=== PATIENT | female | born 1960 | race Caucasian/White ===

== ENCOUNTER → 2023-08-15 13:21 | Outpatient (REF) | payer OTHER, SELFPAY | LOC: WDC 13:21 | PROVIDERS: ATTENDING PHYSICIAN Obstetrics & Gynecology; FAMILY PHYSICIAN Family Medicine | DX: R92.2 Inconclusive mammogram (principal) | CPT/HCPCS: 76641 ==

== ENCOUNTER → 2024-02-04 07:25 | Outpatient (REF) | payer OTHER, SELFPAY | LOC: HWWDC 07:25 | PROVIDERS: ATTENDING PHYSICIAN Obstetrics & Gynecology; FAMILY PHYSICIAN Family Medicine | DX: Z12.31 Encounter for screening mammogram for malignant neoplasm of breast (principal) | CPT/HCPCS: 77063; 77067 ==

== ENCOUNTER 2024-02-10 07:35 | Emergency (ER) | payer OTHER, SELFPAY ==
[2024-02-10 07:41] VITALS: BP 139/99
--- NOTE | 2024-02-10 08:33 | ED.GENMED ---
History of Present Illness
General
Chief Complaint: Abdominal Symptoms
Source: patient
Exam Limitations: none
Time Seen by Provider: 02/10/24 08:09
History of Present Illness
History of Present Illness:
63-year-old female with history of GERD and hypothyroidism presents complaining of intermittent mid abdominal pain described as a dull aching nature for 2 to 3 days. No associated vomiting or fever. She is been moving her bowels without blood in
the stool. Pain is not made worse with breathing or eating. No prior abdominal surgical history. She thought she may have been constipated and took Dulcolax and is since moved her bowels but notes no significant improvement.
Past History
Past History
ED Past Medical History: GERD and Other (Ulcers)
ED Past Surgical History: None
Social History
Tobacco: Non-smoker
Alcohol: Occasional
Personal:
Living: with family
Phy Exam
Physical Exam
Physical Exam:
General: Well-appearing female no acute respiratory distress
HEENT: Normocephalic atraumatic
Heart: Regular rate and rhythm no murmurs lungs: Clear no wheeze
Abdomen is soft tender to the mid abdomen no guarding rebound normal bowel sounds nondistended no costovertebral angle tenderness
Extremities: No cyanosis
Skin: Warm no rash
Course
Orders/Labs/Results
Orders:
Orders
02/10/24 08:33
CT Abd/pelvis W Iv Cont Urgent
Comment:
Reason For Exam: mid abdominal pain
02/10/24 09:00
Complete Blood Count/With Diff Urgent
Comprehensive Metabolic Panel Urgent
Lipase Urgent
Urinalysis Reflex To Culture Urgent
Date Specimen was Collected: 02/10/24
Time Specimen was Collected: 08:53
02/10/24 09:00
02/10/24 09:00
Vital Signs
Initial and Last Documented VS:
Initial Vital Signs
Temp Pulse Resp BP Pulse Ox
98.3 F 99 16 139/99 98
02/10/24 07:41 02/10/24 07:41 02/10/24 07:41 02/10/24 07:41 02/10/24 07:41
Last Documented Vital Signs
Temp Pulse Resp BP Pulse Ox
98.3 F 83 26 130/83 98
02/10/24 07:41 02/10/24 10:30 02/10/24 10:30 02/10/24 10:00 02/10/24 07:41
MDM/Problems Addressed
Differential Diagnosis Includes:
Abdominal pain. Question GERD versus gastritis versus constipation versus diverticulitis. Pain occasionally radiates to the right shoulder. Pain is intermittent. Consider biliary colic however exam not consistent. Will check labs and urine. CT
with IV contrast pending
*Critical Care Note
Total Time (30-74mins, 75-104mins- exclusive of procedures): Not Applicable
Update Note
Update Note:
CT negative labs reviewed without significant finding urinalysis negative. Patient reexamined nontoxic states her pain has changed location. There does seem to be some mild to moderate amount of stool within the rectum. Suspect possible
constipation causing issues. Recommend stool softeners and close follow-up with GI. Stable for discharge
ED Attending Note
-
Portions of this chart may have been created with voice recognition software.� Occasional wrong word or��sound alike� substitutions may have occurred due to the inherent limitations of voice recognition software.
Discharge Plan
Departure
Patient Disposition: Home (Routine Discharge)
Date of Disposition: 02/10/24
Time of Disposition: 11:17
Patient with high blood pressure during this ER visit?: No
Discharge Problem:
Abdominal pain
Instructions: Abdominal Pain
Prescriptions:
No Action
multivitamin [Daily Multiple] 1 EACH tablet
1 ea PO DAILY AT 0700
levothyroxine 50 MCG tablet
50 mcg PO DAILY
docosahexaenoic acid-epa 1 CAP capsule
1 cap PO DAILY AT 0700
cyclobenzaprine 10 MG tablet
10 mg PO TIDPRN PRN (Reason: muscle pain ) Qty: 12 0RF
Referrals:
Valentina Sarkar, [Family Provider] -
Activity Restrictions/Additional Instructions:
Consider continuing use of stool softeners. Continue your antacid. Return for worsening symptoms otherwise follow-up with your GI team
Interventions
Interventions:
*Risk Screen - Suicide Last Done: 02/10/24 07:41
*General Assessment Last Done: 02/10/24 08:46
*Neglect/Abuse Screening Last Done: 02/10/24 07:41
ED- Fall Risk Assessment Last Done: 02/10/24 08:46
*ED COVID-19 Vaccine History Last Done: 02/10/24 08:46
SY-Hazrgc-Ptdfbhzyro Assessment Last Done: 02/10/24 08:46
Discharge Date and Time
Print Language: ARABIC
[2024-02-10 08:46] VITALS: BMI 30.6
[2024-02-10 08:51] VITALS: BP 133/78
[2024-02-10 09:00] VITALS: BP 137/84
[2024-02-10 09:24] LABS: % Eosinophils 0.9 % (0-6); % Immature Granulocytes 0.2 % (0-0.5); % Lymphocytes 40.1 % (20.5-51.1); % Monocytes 5.9 % (1.7-9.3); % Neutrophils 51.9 % (42.2-75.2); Absolute Basophils 0.1 10^3/uL (0-0.2); Absolute Eosinophils 0.1 10^3/uL (0-0.7); Absolute Lymphocytes 2.3 10^3/uL (1.2-3.4); Absolute Monocytes 0.3 10^3/uL (0.1-0.6); Hematocrit 43.6 % (37.0-47.0); Hemoglobin 14.6 g/dL (12.0-16.0); Mean Corp Hgb Conc. 33.5 g/dL (33.0-37.0); Mean Corpuscular Hgb 29.3 pg (27.0-31.0); Mean Corpuscular Volume 87.6 fL (81.0-99.0); Mean Platelet Volume 9.8 fL (7.4-10.4); Nucleated Red Blood Cells % 0 %; Platelet Count 316 10^3/uL (130-400); Red Blood Cell Count 4.98 10^6/uL (4.20-5.40); Red Cell Dist. Width 12.5 % (11.5-14.5); White Blood Cell Count 5.8 10^3/uL (4.8-10.8)
[2024-02-10 09:39] LABS: ALT (SGPT) 25 U/L (0-35); AST (SGOT) 30 U/L (14-36); Albumin 4.9 g/dl (3.5-5.0); Alkaline Phosphatase 71 U/L (38-126); Blood Urea Nitrogen 13 mg/dl (7-17); Carbon Dioxide 27 mmol/L (22-30); Chloride 105 mmol/L (98-107); Estimated Creatinine Clearance 70 ml/min; Glucose 96 mg/dl (70-99); Lipase 77 U/L (23-300); Potassium 4.5 mmol/L (3.5-5.1); Sodium 141 mmol/L (135-145); Total Bilirubin 0.4 mg/dl (0.2-1.3); Total Protein 7.8 g/dl (6.3-8.2); eGFR > 60.00
[2024-02-10 10:00] VITALS: BP 130/83
[2024-02-10 10:10] LABS: Urine Albumin Negative (Neg - Trace); Urine Bilirubin Negative (Negative); Urine Character Clear (Clear); Urine Color Yellow; Urine Glucose Negative (Negative); Urine Ketone Negative (Negative); Urine Leukocyte Negative (Negative); Urine Nitrite Negative (Negative); Urine Occult Blood Negative (Negative); Urine Urobilinogen Negative (Neg - 1+)
--- NOTE | 2024-02-10 11:53 | EDRN ---
Reviewed discharge instructions with patient. Verbalized understanding.
[2024-02-10 11:54] VITALS: BP 110/76
== END 2024-02-10 11:55 | disposition home or self-care (01) ==
LOC: EMR 07:35
PROVIDERS: Physician Assistant; EMERGENCY PHYSICIAN Emergency Medicine; FAMILY PHYSICIAN Family Medicine
DX: R10.9 Unspecified abdominal pain (principal); E03.9 Hypothyroidism, unspecified; K21.9 Gastro-esophageal reflux disease without esophagitis
CPT/HCPCS: 99284; 74177; 80053; 81003; 83690; 85025; Q9967

== ENCOUNTER 2024-10-23 06:32 | Day surgery (SDC) | payer MEDICARE, OTHER, SELFPAY | END 2024-10-23 14:28 | disposition home or self-care (01) | LOC: GI 06:32 | PROVIDERS: ATTENDING PHYSICIAN Internal Medicine Gastroenterology | DX: Z12.11 Encounter for screening for malignant neoplasm of colon (principal); D12.0 Benign neoplasm of cecum; K57.30 Diverticulosis of large intestine without perforation or abscess without bleeding; K64.8 Other hemorrhoids; K22.70 Barrett's esophagus without dysplasia; K22.89 Other specified disease of esophagus; K31.7 Polyp of stomach and duodenum; R12 Heartburn; Z86.0101 Personal history of adenomatous and serrated colon polyps | CPT/HCPCS: 45385; 43239; 88305 ==

== ENCOUNTER → 2025-02-04 07:18 | Outpatient (REF) | payer MEDICARE, OTHER, SELFPAY | LOC: HWWDC 07:18 | PROVIDERS: ATTENDING PHYSICIAN Obstetrics & Gynecology; FAMILY PHYSICIAN Family Medicine | DX: Z12.31 Encounter for screening mammogram for malignant neoplasm of breast (principal) | CPT/HCPCS: 77063; 77067 ==

== ENCOUNTER → 2025-02-23 13:42 | Outpatient (REF) | payer MEDICARE, OTHER, SELFPAY | LOC: HWRAD 13:42 | PROVIDERS: ATTENDING PHYSICIAN Obstetrics & Gynecology; FAMILY PHYSICIAN Family Medicine | DX: Z78.0 Asymptomatic menopausal state (principal) | CPT/HCPCS: 77080 ==